=== PATIENT | female | born 1995 | race Caucasian/White ===

== ENCOUNTER 2017-04-29 21:22 | Emergency (ER) | payer MEDICAID ==
[~2017-04-29] VITALS: Ht 162.6 cm; Wt 45.4 kg
[2017-04-29 22:04] VITALS: BP 151/86
== END 2017-04-29 22:07 | disposition home or self-care (01) ==
LOC: M.ERS 21:22
DX: T74.21XA Adult sexual abuse, confirmed, initial encounter (principal); E03.9 Hypothyroidism, unspecified; F17.200 Nicotine dependence, unspecified, uncomplicated; Y07.03 Male partner, perpetrator of maltreatment and neglect